=== PATIENT | female | born 1970 | race Caucasian/White ===

== ENCOUNTER → 2018-04-03 | Outpatient (CLI) | payer BC ==
--- NOTE | 2018-04-03 20:05 | Diagnostic Imaging Report ---
Bilateral mammograms. INDICATION: Screening. Comparison made with prior examination of 05/19/2016 and 08/31/2013. The current study was also evaluated with a Computer Aided Detection (CAD) system. 3D tomosynthesis symphysis was also performed and reviewed. FINDINGS: There is heterogeneously dense fibroglandular tissue bilaterally. There are few benign-type calcifications. There is no dominant mass, spiculated lesion, or suspicious calcification identified. The skin, nipples, and axillae are unremarkable. IMPRESSION: Benign. ACR BI-RADS Category 2: Benign findings. Result letter will be mailed to the patient. Note: At least 10% of breast cancer is not imaged by mammography. Dictated by: Dictated on workstation # [id number]
== END ==
LOC: RAD 09:39
PROVIDERS: ATTEND Family Medicine
DX: Z12.31 Encounter for screening mammogram for malignant neoplasm of breast (principal); R01.1 Cardiac murmur, unspecified; R60.9 Edema, unspecified
CPT/HCPCS: 77067; 93306

== ENCOUNTER → 2018-10-30 | Outpatient (CLI) | payer BC, OTHER ==
--- NOTE | 2018-10-30 10:56 | Diagnostic Imaging Report ---
EXAMINATION: Ultrasound left breast limited. INDICATION: Left breast pain with lump. FINDINGS: By history, the patient has an intermittent mass in the upper outer quadrant of the left breast and left axilla. There is also some pain in this area. The previous mammogram performed on 04/03/2018 failed to show any sign of malignancy in this area. On this exam, there is no discrete solid or cystic mass. There is no evidence for an abscess either. The area in question may be secondary to fibroglandular tissue alone; however, if clinical concern regarding an underlying abnormality persists, then biopsy should still be considered. IMPRESSION: 1. There is no evidence for malignancy. Clinical followup is recommended. 2. These results were discussed with Dr. Myriam Rucker. ACR BI-RADS Category 1: Negative. Dictated by: Dictated on workstation # [id number]
== END ==
LOC: RAD 09:40
PROVIDERS: ATTEND Nurse Practitioner Family
DX: N63.20 Unspecified lump in the left breast, unspecified quadrant (principal); R59.0 Localized enlarged lymph nodes
CPT/HCPCS: 76642

== ENCOUNTER → 2019-05-30 | Outpatient (CLI) | payer BC ==
--- NOTE | 2019-05-30 17:37 | Diagnostic Imaging Report ---
INDICATION: Routine screening. COMPARISON: Comparison is made with prior mammograms from 04/03/2018 and 05/19/2016. TECHNIQUE: 2-D and 3-D bilateral screening mammography was performed. The current study was also evaluated with a Computer Aided Detection (CAD) system. 3-D tomosynthesis was also performed and reviewed. FINDINGS: Both breasts are heterogeneously dense, limiting the sensitivity of mammography. The parenchymal pattern is stable. No dominant mass or malignant-appearing microcalcifications are seen. Axillae are unremarkable. IMPRESSION: No mammographic features suspicious for malignancy are identified. ACR BI-RADS Category 1: Negative. Result letter will be mailed to the patient. Note: At least 10% of breast cancer is not imaged by mammography. Dictated by: Dictated on workstation # [id number]
== END ==
LOC: RAD 09:28
PROVIDERS: ATTEND Family Medicine
DX: Z12.31 Encounter for screening mammogram for malignant neoplasm of breast (principal)
CPT/HCPCS: 77067

== ENCOUNTER 2021-03-16 17:21 | Emergency (ER) | payer BC ==
[~2021-03-16] VITALS: Ht 162 cm; Wt 90.7 kg
[2021-03-16 17:41] LABS: BASOPHILS % (AUTO) 0 % (0-10); EOSINOPHILS # (AUTO) 0.1 10^3/uL (0.0-0.3); EOSINOPHILS % (AUTO) 1 % (0-10); HEMATOCRIT 41 % (35-52); HEMOGLOBIN 15.2 g/dL (11.5-16.0); LYMPHOCYTES # (AUTO) 2.1 10^3/uL (1.0-4.0); LYMPHOCYTES % (AUTO) 31 % (12-44); MEAN CORPUSCULAR HEMOGLOBIN 33 pg (25-34); MEAN CORPUSCULAR HGB CONC 37 g/dL (32-36); MEAN CORPUSCULAR VOLUME 89 fL (80-99); MEAN PLATELET VOLUME 9.9 fL (9.0-12.2); MONOCYTES # (AUTO) 0.4 10^3/uL (0.0-1.0); MONOCYTES % (AUTO) 6 % (0-12); NEUTROPHILS # (AUTO) 4.2 10^3/uL (1.8-7.8); NEUTROPHILS % (AUTO) 61 % (42-75); PLATELET COUNT 286 10^3/uL (130-400); WHITE BLOOD COUNT 6.9 10^3/uL (4.3-11.0)
[2021-03-16] MEDS ORDERED: METF-865 (17:44)
[2021-03-16] MEDS ORDERED: SPIR25TA5 (17:44)
[2021-03-16] MEDS ORDERED: PHEN37.53 (17:44)
[2021-03-16] MEDS ORDERED: POTA-51 (17:44)
[2021-03-16] MEDS ORDERED: TORS20TA3 (17:44)
[2021-03-16 17:45] LABS: ALBUMIN 4.6 GM/DL (3.2-4.5); CHLORIDE 102 MMOL/L (98-107); POTASSIUM 3.9 MMOL/L (3.6-5.0); SODIUM 137 MMOL/L (135-145)
[2021-03-16 17:47] LABS: GLUCOSE 98 MG/DL (70-105); INR 0.9 (0.8-1.4); TOTAL PROTEIN 8.1 GM/DL (6.4-8.2)
[2021-03-16 17:48] LABS: CARBON DIOXIDE 22 MMOL/L (21-32)
[2021-03-16 17:49] LABS: BILIRUBIN,TOTAL 0.4 MG/DL (0.1-1.0)
[2021-03-16 17:51] LABS: ALKALINE PHOSPHATASE 72 U/L (40-136); CREATININE SERUM 0.87 MG/DL (0.60-1.30); GFR ESTIMATED > 60
[2021-03-16 17:52] LABS: BUN/CREATININE RATIO 15
[2021-03-16 17:54] LABS: ALANINE AMINOTRANSFERASE 53 U/L (0-55); MAGNESIUM 1.9 MG/DL (1.6-2.4)
[2021-03-16] MEDS ORDERED: ORPHENADRINE 60 MG/2 ML (NORFLEX) AMP (ED ONLY) IM ONE (18:00)
[2021-03-16] MEDS ORDERED: ASPIRIN 81 MG CHEW (CHILDREN'S ASA) PO ONE (18:00)
--- NOTE | 2021-03-16 18:06 | ED Chest Pain ---
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 PT REPORTS SHE WAS RESTING WHEN IT STARTED. PT DENIES N/V/D OR SOA. Nursing Sepsis Screen: No Definite Risk Source: patient Exam Limitations: no limitations History of Present Illness Date Seen by Provider: March 16, 2021 Time Seen by Provider: 17:00 Initial Comments This is a well-appearing 50-year-old female who presents to the ER with complaints of intermittent cramping pain that started between her shoulder blades and radiated into the center of her chest. States pain started around 1630 this evening and lasted approximate 45 minutes. At this time pain is improved however she notices that it waxes and wanes. Currently rating pain 0/10. At its worst pain was 10/10. Reported mild nausea during symptom, no vomiting. Additionally reported mild shortness of breath during episode, but is no longer present at this time. Denies fever, chills, cough, nausea/vomiting, abdominal pain at this time. No tobacco or alcohol use. Allergies and Home Medications Allergies Coded Allergies: No Known Drug Allergies (Unverified , 03/16/21) Patient Home Medication List Home Medication List Reviewed: Yes Review of Systems Review of Systems Constitutional: no symptoms reported EENTM: No Symptoms Reported Respiratory: See HPI Cardiovascular: See HPI Gastrointestinal: See HPI Genitourinary: No Symptoms Reported Musculoskeletal: see HPI Skin: no symptoms reported Psychiatric/Neurological: No Symptoms Reported Endocrine: No Symptoms Reported Hematologic/Lymphatic: No Symptoms Reported Past Dpaxame-Qqkhws-Ftrjbv Hx Patient Social History Alcohol Use: Occasionally Uses Alcohol Beverage of Choice: Beer Smoking Status: Never a Smoker Recent Infectious Disease Expo: No Recent Hopitalizations: No Seasonal Allergies Seasonal Allergies: No Past Medical History Surgeries: Yes Gallbladder Respiratory: No Cardiac: Yes Chronic Edema/Swelling Neurological: No Genitourinary: No Gastrointestinal: No Musculoskeletal: No Endocrine: No HEENT: No Cancer: No Psychosocial: No Integumentary: No Blood Disorders: No Physical Exam Vital Signs Vital Signs - First Documented 03/16/21 03/16/21 17:34 20:27 Temp 35.1 Pulse 80 Resp 20 B/P (MAP) 153/92 (112) Pulse Ox 98 O2 Delivery Room Air Capillary Refill : Less Than 3 Seconds Height, Weight, BMI Height: '" Weight: lbs. oz. kg; 34.00 BMI Method: General Appearance: No Apparent Distress, WD/WN HEENT: PERRL/EOMI, Normal ENT Inspection, Moist Mucous Membranes Neck: Full Range of Motion, Normal Inspection, Non Tender, Supple Respiratory: No Chest Non Tender; Lungs Clear, Normal Breath Sounds, No Accessory Muscle Use, No Respiratory Distress; No Pleural Rub; Other (right chest wall tenderness to palpation ) Cardiovascular: Regular Rate, Rhythm, No Edema, No Gallop, No Murmur, Normal Peripheral Pulses; No Friction Rub Gastrointestinal: Normal Bowel Sounds, Non Tender, Soft Extremity: Normal Inspection, Normal Range of Motion Neurologic/Psychiatric: Alert, Oriented x3, No Motor/Sensory Deficits, Normal Mood/Affect Skin: Normal Color, Warm/Dry Progress/Results/Core Measures Results/Orders Lab Results Laboratory Tests Test 03/16/21 17:28 03/16/21 18:31 03/16/21 19:43 Range/Units White Blood Count 6.9 4.3-11.0 10^3/uL Red Blood Count 4.68 3.80-5.11 10^6/uL Hemoglobin 15.2 11.5-16.0 g/dL Hematocrit 41 35-52 % Mean Corpuscular Volume 89 80-99 fL Mean Corpuscular Hemoglobin 33 25-34 pg Mean Corpuscular Hemoglobin Concent 37 H 32-36 g/dL Red Cell Distribution Width 12.4 10.0-14.5 % Platelet Count 286 130-400 10^3/uL Mean Platelet Volume 9.9 9.0-12.2 fL Immature Granulocyte % (Auto) 0 % Neutrophils (%) (Auto) 61 42-75 % Lymphocytes (%) (Auto) 31 12-44 % Monocytes (%) (Auto) 6 0-12 % Eosinophils (%) (Auto) 1 0-10 % Basophils (%) (Auto) 0 0-10 % Neutrophils # (Auto) 4.2 1.8-7.8 10^3/uL Lymphocytes # (Auto) 2.1 1.0-4.0 10^3/uL Monocytes # (Auto) 0.4 0.0-1.0 10^3/uL Eosinophils # (Auto) 0.1 0.0-0.3 10^3/uL Basophils # (Auto) 0.0 0.0-0.1 10^3/uL Immature Granulocyte # (Auto) 0.0 0.0-0.1 10^3/uL Prothrombin Time 12.0 L 12.2-14.7 SEC INR Comment 0.9 0.8-1.4 Activated Partial Thromboplast Time 25 24-35 SEC D-Dimer > 0.20 0.00-0.49 UG/ML Sodium Level 137 135-145 MMOL/L Potassium Level 3.9 3.6-5.0 MMOL/L Chloride Level 102 98-107 MMOL/L Carbon Dioxide Level 22 21-32 MMOL/L Anion Gap 13 5-14 MMOL/L Blood Urea Nitrogen 13 7-18 MG/DL Creatinine 0.87 0.60-1.30 MG/DL Estimat Glomerular Filtration Rate > 60 BUN/Creatinine Ratio 15 Glucose Level 98 70-105 MG/DL Calcium Level 9.0 8.5-10.1 MG/DL Corrected Calcium 8.5-10.1 MG/DL Magnesium Level 1.9 1.6-2.4 MG/DL Total Bilirubin 0.4 0.1-1.0 MG/DL Aspartate Amino Transf (AST/SGOT) 33 5-34 U/L Alanine Aminotransferase (ALT/SGPT) 53 0-55 U/L Alkaline Phosphatase 72 40-136 U/L Myoglobin 42.3 10.0-92.0 NG/ML Troponin I < 0.028 < 0.028 <0.028 NG/ML C-Reactive Protein High Sensitivity 0.60 H 0.00-0.50 MG/DL B-Type Natriuretic Peptide 28.1 <100.0 PG/ML Total Protein 8.1 6.4-8.2 GM/DL Albumin 4.6 H 3.2-4.5 GM/DL Erythrocyte Sedimentation Rate 7 0-20 MM/HR My Orders Orders - DRU 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 Cbc With Automated Diff (03/16/21 17:36) Magnesium (03/16/21 17:36) Chest 1 View, Ap/Pa Only (03/16/21 17:36) Ekg Tracing (03/16/21 17:36) Comprehensive Metabolic Panel (03/16/21 17:36) Myoglobin Serum (03/16/21 17:36) Protime With Inr (03/16/21 17:36) Partial Thromboplastin Time (03/16/21 17:36) O2 (03/16/21 17:36) Monitor-Rhythm Ecg Trace Only (03/16/21 17:36) Ed Iv/Invasive Line Start (03/16/21 17:36) Troponin I (03/16/21 17:36) BNP (03/16/21 17:36) Aspirin Chewable Tablet (Baby Aspirin Ch (03/16/21 18:00) Orphenadrine Inj (Ed Only) (Norflex Inje (03/16/21 18:00) Fibrin Degradation Products (03/16/21 17:55) Hs C Reactive Protein (03/16/21 18:02) Erythrocyte Sedimentation Rate (03/16/21 18:02) Troponin I (03/16/21 20:00) Medications Given in ED Vital Signs/I&O 03/16/21 03/16/21 17:34 20:27 Temp 35.1 36.0 Pulse 80 66 Resp 20 11 B/P (MAP) 153/92 (112) 111/75 (112) Pulse Ox 98 98 O2 Delivery Room Air Blood Pressure Mean: 112 Progress Progress Note : Progress Note Patient examined and in no acute distress. During examination she reported symptoms started again and was rating pain 4/10, cramping sensation with periods of sharp pain in her right chest wall. Will give aspirin 324 mg p.o. and continue with cardiac work-up with d-dimer. Additionally will give Norflex 60 mg for cramp-like pain. Labs reviewed and are unremarkable, chest x-ray is negative for acute pathology. Reports significant improvement after Norflex. Discussed repeating troponin within 2 hours to ensure no elevation as her symptoms began around 1630, She is agreeable with this. She is currently relaxing in room, vital signs stable, no complaints presently. Repeat troponin neg. She is having no pain. Discussed that this could represent a muscle spasm and to follow up with her PCP if symptoms persist after conservative treatment. If she has any new, concerning, or worsening symptoms s he can always return to the ER for workup. Reviewed discharge POC and she is agreeable with plan. EKG : EKG Time: 17:26 Rate: 75 Rhythm: Normal Sinus Intervals: Normal ECG Comparisson: No Previous ECG Available ECG Impression: Normal Diagnostic Imaging Diagonstic Imaging: Xray Plain Films/CT/US/NM/MRI: chest Comments NAME: JANIA NEVES [facility] REC#: [id number] PT STATUS: REG ER : 1970 PHYSICIAN: DRU PADGETT APRN ADMIT DATE: 03/16/21/ER Draft Date of Exam:03/16/21 CHEST 1 VIEW, AP/PA ONLY EXAMINATION: Portable erect AP chest at 5:58 p.m. INDICATION: Chest pain. COMPARISON: There are no prior exams available for comparison. FINDINGS: The heart size is within normal limits. The lungs are clear. The osseous structures, where visualized, are intact. IMPRESSION: Negative for active disease. Dictated on workstation # [id number] Dict: 03/16/211821 Trans: 03/16/211825 [facility] [id number] Interpreted by: JOSEFINA PATEL MD Electronically signed by: Reviewed: Reviewed by Me Departure Impression Primary Impression: Back spasm Disposition: 01 HOME, SELF-CARE Condition: Improved Departure-Patient Inst. Decision time for Depature: 19:45 Referrals: SHERICE LOPEZ DO (PCP/Family) Primary Care Physician Patient Instructions: Muscle Spasm ED Add. Discharge Instructions: Plan: 1. Avoid strenuous activity, lifting, twisting, pulling. 2. May use ice/heat to affected area. May use Tylenol or Ibuprofen as needed for pain per package. 3. Follow up with your primary care provider if your symptoms persist. 4. Return to ER for any new, concerning, or worsening symptoms. All discharge instructions reviewed with patient and/or family. Voiced understanding. DRU PADGETT APRN March 16, 2021 18:06
--- NOTE | 2021-03-16 18:26 | Diagnostic Imaging Report ---
EXAMINATION: Portable erect AP chest at 5:58 p.m. INDICATION: Chest pain. COMPARISON: There are no prior exams available for comparison. FINDINGS: The heart size is within normal limits. The lungs are clear. The osseous structures, where visualized, are intact. IMPRESSION: Negative for active disease. Dictated by: Dictated on workstation # [id number]
[2021-03-16 20:27] VITALS: BP 111/75
== END 2021-03-16 20:30 | disposition home or self-care (01) ==
LOC: EDUNIT# 17:21 → ER 17:22
DX: M62.830 Muscle spasm of back (principal)
CPT/HCPCS: 36415; 71045; 80053; 83735; 83874; 83880; 84484; 85025; 85379; 85610; 85652; 85730; 86141; 93005; 93041

== ENCOUNTER → 2022-07-29 | Outpatient (CLI) | payer BC ==
[~2022-07-29] MED LIST: METF-865; PHEN37.58; POTA-51; SPIR25TA5; TORS20TA3
--- NOTE | 2022-07-29 10:43 | Diagnostic Imaging Report ---
INDICATION: Routine screening. Comparison is made with prior mammogram from 05/30/2019 and 04/03/2018. 2-D and 3-D bilateral screening mammography was performed with CAD. Both breasts are heterogeneously dense, limiting the sensitivity of mammography. The parenchymal pattern is stable. No mass is identified. No malignant-appearing microcalcifications are seen. Axillae are unremarkable. IMPRESSION: No mammographic features suspicious for malignancy are identified. ACR BI-RADS Category 1: Negative. Result letter will be mailed to the patient. Note: At least 10% of breast cancer is not imaged by mammography. BI-RADS Category 1 Dictated by: Dictated on workstation # [id number]
== END ==
LOC: RAD 07:30
PROVIDERS: ATTEND Family Medicine
DX: Z12.31 Encounter for screening mammogram for malignant neoplasm of breast (principal)
CPT/HCPCS: 77063; 77067

== ENCOUNTER → 2023-08-04 | Outpatient (CLI) | payer BC ==
[~2023-08-04] MED LIST changes: +POTA-330; -POTA-51
--- NOTE | 2023-08-04 16:26 | Diagnostic Imaging Report ---
INDICATION: Routine screening. COMPARISON is made with prior mammograms from 07/29/2022 and 05/30/2019. 2-D and 3-D bilateral screening mammography was performed with CAD. Both breasts are heterogeneously dense, limiting the sensitivity of mammography. The overall parenchymal pattern is stable. No dominant mass or malignant-appearing microcalcifications are seen. There are scattered benign calcifications. The axillae are unremarkable. IMPRESSION: BI-RADS Category 2 No mammographic features suspicious for malignancy are identified. ACR BI-RADS Category 2: Benign findings. Result letter will be mailed to the patient. Note: At least 10% of breast cancer is not imaged by mammography. Dictated by: Dictated on workstation # [id number]
== END ==
LOC: RAD 14:55
PROVIDERS: ATTEND Family Medicine
DX: Z12.31 Encounter for screening mammogram for malignant neoplasm of breast (principal)
CPT/HCPCS: 77063; 77067

== ENCOUNTER 2023-08-17 06:14 | Outpatient (CLI) | payer BC ==
[~2023-08-17] VITALS: Ht 162.5 cm; Wt 104.5 kg
[2023-08-19] MEDS ORDERED: POTA-330 PO (13:40)
[2023-08-19] MEDS ORDERED: TORS20TA3 PO (13:40)
[2023-08-19] MEDS ORDERED: METF-397 PO (13:40)
[2023-08-19] MEDS ORDERED: SPIR25TA5 PO (13:40)
== END 2023-08-19 13:53 | disposition home or self-care (01) ==
LOC: PREOP 06:14
PROVIDERS: ATTEND Internal Medicine
DX: Z01.818 Encounter for other preprocedural examination (principal)

== ENCOUNTER 2023-08-26 09:23 | Day surgery (SDC) | payer BC ==
--- NOTE | 2023-08-13 13:52 | HISTORY AND PHYSICAL ---
DATE OF SERVICE: 08/26/2023 COLONOSCOPY HISTORY AND PHYSICAL HISTORY OF PRESENT ILLNESS: The patient is a 52-year-old white female referred by Dr. Rucker for her first screening colonoscopy. She is deemed to be of average risk because she is not aware of any family history for colon cancer. She denies bright red blood per rectum, melena, abdominal pain or change in bowel habits. PAST MEDICAL HISTORY: Significant for pedal edema with fluid retention for which she takes spironolactone and torsemide as well as potassium daily. She takes trazodone at bedtime for insomnia and is on metformin sounds like around a gram a day for insulin resistance. She reports no known past history for sleep apnea. PAST SURGICAL HISTORY: Significant for cholecystectomy. 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 No past smoking history. Rare small volume alcohol intake. FAMILY HISTORY: Father living at the age of 82. He has history of hypertension, diabetes and nonmelanoma skin cancer. Mother at the age of 84, complications of breast cancer. REVIEW OF SYSTEMS: CONSTITUTIONAL: Denies night sweats, chills, fever or change in weight. GASTROINTESTINAL: As noted in the HPI. PULMONARY: Denies cough, wheezing or shortness of breath. CARDIOVASCULAR: Denies chest pain, orthopnea, PND. Does note pedal edema. She does not take her diuretics. PHYSICAL EXAMINATION: GENERAL: Reveals a pleasant white female in no acute distress. VITAL SIGNS: Blood pressure 110/70. BMI 44. HEENT: Unremarkable. Sclerae nonicteric. CHEST: Clear to auscultation. CARDIOVASCULAR: Reveals a regular rate and rhythm without murmur, S3, or S4. ABDOMEN: Soft, supple without mass, organomegaly, or tenderness. No striae noted. EXTREMITIES: Revealed no cyanosis, clubbing or edema. ASSESSMENT AND PLAN: The patient is being set up for her first screening colonoscopy deemed to be of average risk. Prep instructions were given and questions were answered. Due to body habitus, we will be vigilant for any evidence for apneic breathing during her sedation to suggest obstructive sleep apnea. I thank you for the referral of this pleasant lady. Job ID: [id number] DocumentID: [id number] Dictated Date: 08/10/2023 14:25:50 Automotive Porter Date: 08/10/2023 15:04:00 Dictated By: HAROON JONES MD
[~2023-08-26] VITALS: Ht 162.5 cm; Wt 104.5 kg
[~2023-08-26 09:23] MED LIST changes: +METF-397 PO; +POTA-330 PO; +SPIR25TA5 PO; +TORS20TA3 PO
[2023-08-26] MEDS ORDERED: LACTATED RINGERS 1,000 ML 1,000 ML IV STA (09:30)
[2023-08-26 10:07] VITALS: BP 125/91
--- NOTE | 2023-08-26 10:15 | Pre-Op Note & Conscious Sedat ---
Pre-Operative Progress Note Date H&P Reviewed: Aug 26, 2023 Time H&P Reviewed: 10:14 History & Physical: H&P Reviewed, Patient Examed, No changes noted Pre-Op Diagnosis: screening Moderate Sedation PreProcedure ASA Score 2 Airway Lungs Heart ASA score ASA 1: a normal healthy patient ASA 2: a patient with a mild systemic disease (mid diabetes, controlled hypertension, obesity ASA 3: a patient with a severe systemic disease that limits activity (angina, COPD, prior Myocardial infarction) ASA 4: a patient with an incapacitating disease that is a constant threat to life (CHF, renal failure) ASA 5: a moribund patient not expected to survive 24 hrs. (ruptured aneurysm) ASA 6: a declared brain- patient whose organs are being harvested. For emergent operations, add the letter E after the classification Mallampati Classification Grade 2 Sedation Plan Analgesia, Amnesia, Plan communicated to team members, Discussed options with patient/fam, Discussed risks with patient/fam The patient is an appropriate candidate to undergo the planned procedure, sedation, and anesthesia. The patient immediately re-assessed prior to indication. HAROON JONES MD Aug 26, 2023 10:15
--- NOTE | 2023-08-26 11:23 | Anesthesia-General Post-Op ---
MAC Patient Condition Mental Status/LOC: Same as Preop Cardiovascular: Satisfactory Nausea/Vomiting: Absent Respiratory: Satisfactory Pain: Controlled Complications: Absent Post Op Complications Complications None Follow Up Care/Instructions Patient Instructions None needed. Anesthesiology Discharge Order Discharge Order Patient is doing well, no complaints, stable vital signs, no apparent adverse anesthesia problems. No complications reported per nursing. CARA GAMING CRNA Aug 26, 2023 11:23
--- NOTE | 2023-08-26 11:24 | Progress Note-Post Operative ---
Post-Procedure Note Physician (s)/Refrigeration Mechanic (s) Physician HAORON JONES MD Pre-Procedure Diagnosis Pre-Procedure Diagnosis: screening Post-Procedure Diagnosis Post-operative diagnosis: Prior to undergoing colonoscopy digital rectal evaluation was performed. Anal sphincter tone was normal and the perianal reflexes intact. No abnormalities noted on digital inspection anal canal distal rectal vault. The colonoscope was inserted into the rectum and under direct visualization advanced to the cecum. The cecum was identified by the medication of the ileocecal valve and cecal strap. Photographic documentation was obtained. Careful inspection was made as the colonoscope withdrawn. Quality the prep was good. Findings there are no evidence of internal/external hemorrhoids and the rectum was unremarkable. Present in the proximal sigmoid colon was a 4 mm sessile adenomatous appearing polyp it was biopsied and ablated with no blood loss. No other sigmoid colonic Abna's are appreciated. The descending colon was unremarkable. Similar 4 mm polyp was noted at the splenic flexure it was biopsied and ablated with no blood loss. The transverse colon hepatic flexure ascending colon and cecum were unremarkable. Assessment to 4 mm sessile adenomatous appearing polyps removed via hot forceps 1 from the proximal sigmoid colon and the other from the splenic flexure. No other abnormalities are noted on today's colonoscopy under good prep conditions. As long as there are no surprises on histopathology would advocate consideration for repeat screening colonoscopy in 10 years. CC: Dr. Eden Rucker DO. HAROON JONES MD Aug 26, 2023 11:24
[2023-08-26 11:28] VITALS: BP 103/65
[2023-08-26 11:33] VITALS: BP 101/65
[2023-08-26 11:38] VITALS: BP 105/72
[2023-08-26 11:40] VITALS: BP 111/68
[2023-08-26 12:08] VITALS: BP 111/68
== END 2023-08-26 12:08 | disposition home or self-care (01) ==
LOC: ENDO 09:23
PROVIDERS: ATTEND Internal Medicine
DX: Z12.11 Encounter for screening for malignant neoplasm of colon (principal); K63.5 Polyp of colon; G47.00 Insomnia, unspecified; E11.9 Type 2 diabetes mellitus without complications; E66.01 Morbid (severe) obesity due to excess calories; Z79.84 Long term (current) use of oral hypoglycemic drugs; Z79.899 Other long term (current) drug therapy; Z68.39 Body mass index [BMI] 39.0-39.9, adult
CPT/HCPCS: 84703; 88305